=== PATIENT | female | born 1980 | race African-American/Black ===

== ENCOUNTER 2018-08-31 03:05 | Emergency (ER) | payer SELFPAY ==
[~2018-08-31] VITALS: Ht 180.3 cm; Wt 86.2 kg
[2018-08-31 03:30] VITALS: BP 162/80
--- NOTE | 2018-08-31 03:30 | NUR ---
ER Nurse Note: Pt came from home c/o rash around the whole body since 08/27. Denies ingesting abnormal substances, no exposure to rash developing items, no allergies. Rash is sporadic, non-raised, itchiness and pain. Pt has hx of eczema. Will continue to [facility].
[2018-08-31] MEDS ORDERED: HYDROXYZINE PAM25 MG PO (04:12)
[2018-08-31] MEDS ORDERED: PREDNISONE20 MG ORAL (04:12)
[2018-08-31] MEDS ORDERED: Lidocaine HCl 2% Jelly 6ml Tube TOPIC ONE (04:15)
[2018-08-31 04:25] VITALS: BP 158/76
--- NOTE | 2018-08-31 04:25 | NUR ---
ER Nurse Note: Pt seen, treated, medically cleared for discharge by ERMD. Discharge instuctions and prescriptions given with repeat verbalization by pt. Emphasized to follow up with primay care provider; take whole course of medication. Explained each medication. All orders completed per ERMD orders. Pt a&ox4, VSS, no signs of distress. ID band removed. All questions answered per pt's questions. Pt left with all belongings, left with own transportation.
[2018-08-31] MEDS ORDERED: DiphenhydrAMINE 25mg/10ml Elixir ORAL ONE (04:30)
--- NOTE | 2018-09-02 22:01 | Emergency Room Report ---
History of Present Illness General Chief Complaint: Skin Rash/Abscess Source: Patient Present Illness Allergies: Coded Allergies: No Known Allergies (Unverified , 08/31/18) Patient History Last Menstrual Period: current Now: No Nursing Documentation-PMH Hx Hypertension: Yes Hx Asthma: Yes Physical Exam Vital Signs Date Time Temp Pulse Resp B/P (MAP) Pulse Ox O2 Delivery O2 Flow Rate FiO2 08/31/18 03:19 98.1 80 18 162/80 (107) 98 Room Air Medical Decision Making Diagnostic Impression: Primary Impression: Eczema Last Vital Signs Date Time Temp Pulse Resp B/P (MAP) Pulse Ox O2 Delivery O2 Flow Rate FiO2 08/31/18 04:25 98.1 78 18 158/76 98 Room Air Status: improved Disposition: HOME, SELF-CARE Condition: Stable Scripts Hydroxyzine Pamoate (HYDROXYZINE PAMOATE) 25 Mg Capsule 25 MG PO EVERY 6 HOURS, #20 CAP Prov: Ventura Ratliff MD 08/31/18 Prednisone* (PREDNISONE*) 20 Mg Tablet 20 MG ORAL DAILY, #5 TAB Prov: Ventura Ratliff MD 08/31/18 Referrals: NOT CHOSEN IPA/,REFERRING (PCP) Patient Instructions: Eczema Ventura Ratliff MD Sep 02, 2018 22:01
== END 2018-08-31 04:25 | disposition home or self-care (01) ==
LOC: EMR 03:49
DX: L30.9 Dermatitis, unspecified (principal); R21 Rash and other nonspecific skin eruption; I10 Essential (primary) hypertension
CPT/HCPCS: 99282; J7512